=== PATIENT | male | born 1955 | race Caucasian/White ===

== ENCOUNTER → 2023-10-03 10:22 | Outpatient (REF) | payer BC, SELFPAY | LOC: HWRAD 10:22 | PROVIDERS: ATTENDING PHYSICIAN Student in an Organized Health Care Education/Training Program | DX: R19.09 Other intra-abdominal and pelvic swelling, mass and lump (principal) | CPT/HCPCS: 76882 ==

== ENCOUNTER 2024-02-08 06:11 | Day surgery (SDC) | payer BC, SELFPAY ==
[2024-02-08] VITALS (12 sets, daily range): BP systolic 104–160; BP diastolic 57–98; BMI 28.8
[2024-02-08] MEDS: TYLENOL 1000 MG PO (06:46)
[2024-02-08] MEDS: TYLENOL 650 MG PO (13:21)
== END 2024-02-08 13:34 | disposition home or self-care (01) ==
LOC: SDS 06:11
PROVIDERS: ATTENDING PHYSICIAN Surgery
DX: K40.20 Bilateral inguinal hernia, without obstruction or gangrene, not specified as recurrent (principal); I25.10 Atherosclerotic heart disease of native coronary artery without angina pectoris; Z95.5 Presence of coronary angioplasty implant and graft
CPT/HCPCS: 49650; C1781

== ENCOUNTER 2024-11-14 14:02 | Emergency (ER) | payer BC, MEDICARE, SELFPAY ==
--- NOTE | 2024-11-14 16:32 | ED.SKININJ ---
HPI-Injury
<Cullen Sanon MD, Resident - Last Filed: 11/14/24 17:45>
General
Chief Complaint: Bite
Source: patient
Time Seen by Provider: 11/14/24 16:32
Nursing documentation reviewed up to this point in time: agreed with
History of Present Illness-Injury
Is this injury a work related problem?: No
Initial Injury comments:
69 year old male with a past medical history of CAT, HTN, and HLD comes to the ED due to a supposed spider bite on his right elbow around 5 days ago. His elbow became swollen and erythematous/tender, and it got worse over the week. On Sunday, he
developed some chills and night sweats along with fatigue. Yesterday he ended up going to his PCP who started him on some Doxycycline and Medrol dose pack. He has been feeling much better and his swelling/tenderness has gone down significantly. He
came to the ED today at the request of his co-workers as they were concerned he might need further treatment.
Past History
<Cullen Sanon MD, Resident - Last Filed: 11/14/24 17:45>
Past History
ED Past Medical History: Arrthythmia (RBBB), Hypercholesterolemia and OH
ED Past Surgical History: Cardiac (Cardiac Stent) and Other (skin cancer removal on neck)
Social History
Tobacco: Non-smoker
Alcohol: Occasional
Drug: None
Employment: Employed
Family History
Family History: Hypertension and CAD
Review of Systems
<Cullen Sanon MD, Resident - Last Filed: 11/14/24 17:45>
Review of Systems
Allergies reviewed?: Yes
Constitutional: Reports no symptoms
EENT: Reports no symptoms
Respiratory: Reports no symptoms
Cardiac: Reports no symptoms
ABD/GI: Reports no symptoms
: Reports no symptoms
Musculoskeletal: Reports edema (right elbow edema)
Skin: Reports other (erythema right elbow)
Neurological: Reports no symptoms
Endocrine: Reports no symptoms
Hematologic/Lymphatic: Reports no symptoms
Psychiatric: Reports no symptoms
Skin Exam
<Cullen Sanon MD, Resident - Last Filed: 11/14/24 17:45>
Bite
Right Elbow:
Type: insect/spider
Skin has: other (2-3 cm area of discoloration)
Description of insect bites: Unknown if bite, area of discoloration next to area of edema in elbow
Surrounding area around bite has: area of erythema/swelling (Mild fluid noted, looks to be resolving)
Distal skin color and temperature: normal-warm & good color
Phy Exam
<Cullen Sanon MD, Resident - Last Filed: 11/14/24 17:45>
General Physical Exam
General Presentation: well appearing and no apparent distress
General Skin: warm and dry
General Habitus: normal
General Mental: alert
General Hydration: appears well hydrated
Cardiovascular Exam
Cardiovascular Exam: regular rate/rhythm, no edema, no gallop and no murmur
Pulmonary Exam
Pulmonary Exam: lungs clear, no respiratory distress, no rales, no crackles, no rhonchi and no wheezing
Musculoskeletal Exam
Musculoskeletal Exam: full ROM and edema (Right elbow mild edema, no erythema or tenderness)
Course
<Cullen Sanon MD, Resident - Last Filed: 11/14/24 17:45>
Orders/Labs/Results
Orders:
Orders
11/14/24 17:38
Tetanus/Diphth/Acelpertussis [Adacel] 0.5 ml IM .ONCE ONE
Vital Signs
Initial and Last Documented VS:
Initial Vital Signs
Temp
98.9 F
11/14/24 14:06
Last Documented Vital Signs
Temp
98.9 F
11/14/24 14:06
<Jesse Green, DO - Last Filed: 11/14/24 17:40>
Orders/Labs/Results
Orders:
Orders
11/14/24 17:38
Tetanus/Diphth/Acelpertussis [Adacel] 0.5 ml IM .ONCE ONE
Vital Signs
Initial and Last Documented VS:
Initial Vital Signs
Temp
98.9 F
11/14/24 14:06
Last Documented Vital Signs
Temp
98.9 F
11/14/24 14:06
<Cullen Sanon MD, Resident - Last Filed: 11/14/24 17:45>
MDM/Problems Addressed
Differential Diagnosis Includes:
Resolving insect bite, Right elbow bursitis
MDM/Problems Addressed:
69 yo M with past medical history of HTN, HLD and CAD comes to the ED due to recent right elbow swelling, most likely due to an insect/spider bite
On examination, the area is not tender, non erythematous, and only mildly edematous. Symptoms seem to be improving as well and the swelling is much improved from before as per patient.
No further therapy is indicated at this time and he should continue with the Doxycycline+Medrol Dose pack that was ordered by his PCP
Will give him tetanus shot as he is not up to date and provide information for Orthopedist for follow up if his swelling does not resolve (due to possible bursitis)
<Cullen Sanon MD, Resident - Last Filed: 11/14/24 17:45>
*Pulse Oximetry
Patient hypoxic: not evaluated
*Critical Care Note
Total Time (30-74mins, 75-104mins- exclusive of procedures): Not Applicable
ED Attending Note
<Cullen Sanon MD, Resident - Last Filed: 11/14/24 17:45>
-
Portions of this chart may have been created with voice recognition software.� Occasional wrong word or��sound alike� substitutions may have occurred due to the inherent limitations of voice recognition software.
<Jesse Green DO - Last Filed: 11/14/24 17:40>
ED Attending Note
Patient seen and examined by attending physician: Yes
I performed a history and physical exam of patient and discussed management with resident, I reviewed resident's note and agree with documented findings and plan of care.: Yes
ED Attending Note:
Seen with resident examined independently 69-year-old male with olecranon bursitis been on Doxy and steroids, improving, came in to get evaluated, concerned that he had exposure to tetanus, will update his tetanus, refer nonurgently to orthopedics
continue treatment course as he is improving
Discharge Plan
Departure
Patient Disposition: Home (Routine Discharge)
Date of Disposition: 11/14/24
Time of Disposition: 17:39
Patient with high blood pressure during this ER visit?: No
Condition: Good
Discharge Problem:
Insect bite (nonvenomous) of right elbow, sequela
Instructions: Insect Bites and Stings (DC)
Prescriptions:
No Action
biotin 5 mg Capsule
5 mg PO DAILY
saw palmetto 160 mg Capsule
160 mg PO DAILY
niacin 100 mg Tablet
100 mg PO DAILY
coQ10 (ubiquinol) 100 mg Capsule
100 mg PO DAILY
ashwagandha extract 120 mg Capsule
120 mg PO DAILY
atorvastatin 40 mg Tablet
40 mg PO HS Qty: 90 5RF
nitroglycerin 0.4 mg tablet, sublingual
0.4 mg sublingual [id number] PRN (Reason: chest pain) Qty: 25 5RF
aspirin 81 mg tablet,chewable
81 mg PO HS
metoprolol succinate 25 mg tablet extended release 24 hr
25 mg PO DAILY
acetaminophen [acetaminophen] 325 mg tablet
650 mg PO Q4HPRN PRN (Reason: mild pain) Qty: 1 0RF
oxycodone 5 mg tablet
5 mg PO Q4HPRN PRN (Reason: breakthrough/severe pain) Qty: 10 0RF
ibuprofen 200 mg tablet
400 - 600 mg PO Q6HPRN PRN (Reason: moderate pain) Qty: 1 0RF
Referrals:
Letitia Kendall PA-C [Family Provider, Family Practice]
Jared Castro MD [Active, Orthopedics]
Referral Note: Follow up with Ortho if symptoms do not resolve for possible Bursitis
Activity Restrictions/Additional Instructions:
Continue with prescribed Doxycycline Treatment and Medrol Dose Pack
If symptoms do not resolve, follow up with Orthopedics because there might be possible bursitis in your right elbow
We will update your Tetanus vaccination today
If you develop and worsening symptoms such as fevers, chills, further elbow tenderness/marked erythema, please come back to the ED
Interventions
Interventions:
*Risk Screen - Suicide Last Done: 11/14/24 14:06
*General Assessment Last Done: 11/14/24 16:34
*Neglect/Abuse Screening Last Done: 11/14/24 14:06
*ED- Fall Risk Assessment Last Done: 11/14/24 16:34
*ED COVID-19 Vaccine History Last Done: 11/14/24 16:34
ED-Skin Assessment Last Done: 11/14/24 16:34
Discharge Date and Time
Print Language: [id number]
[2024-11-14 16:34] VITALS: BMI 29.5
[2024-11-14] MEDS: ADACEL 0.5 ML IM (17:45)
== END 2024-11-14 17:49 | disposition home or self-care (01) ==
LOC: EMR 14:02
PROVIDERS: EMERGENCY PHYSICIAN Emergency Medicine; FAMILY PHYSICIAN Student in an Organized Health Care Education/Training Program
DX: S50.361A Insect bite (nonvenomous) of right elbow, initial encounter (principal); W57.XXXA Bitten or stung by nonvenomous insect and other nonvenomous arthropods, initial encounter; I25.10 Atherosclerotic heart disease of native coronary artery without angina pectoris; I10 Essential (primary) hypertension; E78.00 Pure hypercholesterolemia, unspecified; I45.10 Unspecified right bundle-branch block; I25.2 Old myocardial infarction; Z23 Encounter for immunization; Z95.5 Presence of coronary angioplasty implant and graft; Z79.82 Long term (current) use of aspirin; Z85.828 Personal history of other malignant neoplasm of skin; Z82.49 Family history of ischemic heart disease and other diseases of the circulatory system
CPT/HCPCS: 99281; 90471; 90715